=== PATIENT | male | born 1965 | race Caucasian/White ===

== ENCOUNTER 2022-07-18 12:35 | Outpatient (CLI) | payer OTHER, SELFPAY ==
[2022-07-18 09:24] LABS: Abs Immature Grans 0.05 10^3/uL (0.0-0.06); Absolute Basophil Count 0.07 10^3/uL (0.0-0.2); Absolute Eosinophil Count 0.08 10^3/uL (0.0-0.7); Absolute Lymphocyte Count 1.62 10^3/uL (1.2-3.4); Absolute Monocyte Count 0.65 10^3/uL (0.1-0.8); Absolute Neutrophil Count 4.93 10^3/uL (1.2-6.7); Basophils % 0.9; Eosinophils % 1.1; HGB 13.5 g/dL (13.5-17.5); Immature Grans % 0.7; Lymphocytes % 21.9; MCH 33.3 pg (27.0-33.0); MCHC 34.6 % (32.0-36.0); MCV 96 fL (80-95); MPV 8.5 fL (8.0-11.0); Monocytes % 8.8; Neutrophils % 66.6; Platelet Count 222 10^3/uL (130-400); RBC 4.05 10^6/uL (4.36-5.78); RDW-SD 42.1 fL
[2022-07-18 09:54] LABS: ALT 28 U/L (16-63); AST 18 U/L (15-37); Albumin 3.9 g/dL (3.4-5.0); Alkaline Phosphatase 74 U/L (46-116); Anion Gap 12.2 mmol/L (3-11); BUN 17 mg/dL (7-18); Bilirubin, Total 0.5 mg/dL (0.2-1.0); CO2 23.8 mmol/L (21.0-32.0); Calcium 9.3 mg/dL (8.5-10.1); Chloride 98 mmol/L (98-107); Estimated GFR 88.33 (mL/min/1.73m2); Glucose 156 mg/dL (74-106); Potassium 4.1 mmol/L (3.5-5.1); Sodium 134 mmol/L (136-145); Total Protein 7.6 g/dL (6.4-8.2)
[2022-07-19 14:51] LABS: PSA, Ultrasensitive 1.7 ng/mL (<= 3.5)
[2022-07-22 16:45] LABS: Testosterone, Total 8.3 ng/dL (240-950)
== END 2022-07-18 12:36 | disposition home or self-care (01) ==
LOC: LBO 12:36
PROVIDERS: PCP Nurse Practitioner Adult Health; Visit Provider Internal Medicine
DX: C61 Malignant neoplasm of prostate (principal)
CPT/HCPCS: 36415; 80053; 84153; 84403; 85025

== ENCOUNTER 2022-11-08 02:36 | Outpatient (CLI) | payer OTHER, SELFPAY ==
[2022-11-11 10:06] LABS: PSA, Ultrasensitive 0.11 ng/mL (<= 3.5)
[2022-11-14 13:37] LABS: Testosterone, Total <7.0 ng/dL (240-950)
== END 2022-11-08 02:37 | disposition home or self-care (01) ==
LOC: LBO 02:37
PROVIDERS: PCP Nurse Practitioner Adult Health; Visit Provider Radiology Radiation Oncology
DX: C61 Malignant neoplasm of prostate (principal)
CPT/HCPCS: 36415; 84153; 84403

== ENCOUNTER 2023-03-08 02:55 | Outpatient (CLI) | payer OTHER, SELFPAY ==
[2023-03-10 10:02] LABS: PSA, Ultrasensitive 0.03 ng/mL (<= 3.5)
[2023-03-12 16:54] LABS: Testosterone, Total <7.0 ng/dL (240-950)
== END 2023-03-08 02:56 | disposition home or self-care (01) ==
LOC: LBO 02:55
PROVIDERS: PCP Nurse Practitioner Adult Health; Visit Provider Radiology Radiation Oncology
DX: C61 Malignant neoplasm of prostate (principal)
CPT/HCPCS: 36415; 84153; 84403

== ENCOUNTER 2023-09-19 03:03 | Outpatient (CLI) | payer OTHER, SELFPAY ==
[2023-09-21 18:11] LABS: PSA, Ultrasensitive 0.05 ng/mL (<= 3.5)
[2023-09-24 12:45] LABS: Testosterone, Total 139 ng/dL (240-950)
== END 2023-09-19 03:04 | disposition home or self-care (01) ==
PROVIDERS: PCP Nurse Practitioner Adult Health; Visit Provider Nurse Practitioner
DX: C61 Malignant neoplasm of prostate (principal)
CPT/HCPCS: 36415; 84153; 84403

== ENCOUNTER 2024-08-06 01:34 | Outpatient (CLI) | payer OTHER, SELFPAY ==
--- NOTE | 2024-08-06 14:00 | DI.RAD_ITS ---
Exam(s) XR ABDOMEN FLAT PLATE EXAM: 2D digital imaging was performed. CLINICAL HISTORY: EVAL PASSAGE PATENCY CAPSULE, IRON DEF ANEMIA IN NEED OF VCE, [id number]. COMPARISON: No exams were available for comparison TECHNIQUE: Supine views of the abdomen performed. FINDINGS: BOWEL GAS PATTERN: Nondistended. Moderate quantity of stool. No evidence of capsule, indicating pass age. CALCIFICATIONS: No radiopaque calcifications are visible. OSSEOUS STRUCTURES: Unremarkable for age. OTHER FINDINGS: Metallic densities in the low pelvis. IMPRESSION: Nonobstructive bowel gas pattern. Passage of administered patency capsule. DATA REPOSITORY: RADIATION DOSE DELIVERED:
== END 2024-08-06 01:54 ==
PROVIDERS: PCP Nurse Practitioner Adult Health; Visit Provider Physician Assistant
DX: D50.9 Iron deficiency anemia, unspecified (principal)
CPT/HCPCS: 74018